=== PATIENT | female | born 1950 | race Caucasian/White ===

== ENCOUNTER 2018-04-14 03:34 | Inpatient (IN) | payer MEDICARE ==
[~2018-04-14] VITALS: Ht 162.6 cm; Wt 45.4 kg
[2018-04-14] MEDS ORDERED: LORAZEPAM 0.5 MG TABLET PO PRN (06:30)
[2018-04-14] MEDS ORDERED: TEMAZEPAM 7.5 MG CAPSULE PO PRN (06:30)
[2018-04-14] MEDS ORDERED: MAGNESIUM HYDROXIDE 30 ML UDC PO PRN (06:30)
[2018-04-14] MEDS ORDERED: MAG HYDROX/AL HYDROX/SIMETH 30 ML UDC PO PRN (06:30)
[2018-04-14] MEDS ORDERED: ACETAMINOPHEN 325 MG TABLET PO PRN (06:30)
[2018-04-14] MEDS ORDERED: CEPH-570 PO (07:46)
[2018-04-14 08:00] VITALS: BP 118/65
--- NOTE | 2018-04-14 08:07 | NUR ---
GPS/RN PT IS DIRECT ADMIT FROM [facility]([place]) ON 5150 HOLD RECEIVED BY THE SHIP FASTENER. NO ACUTE DISTRESS NOTED. NO SI OR HI REPORTED AT THE TIME OF ASSESSMENT. PT REFUSED TO SIGN THE ADMITTING PAPERWORK/CONSENTS. WILL CONTINUE WITH ADMISSION
--- NOTE | 2018-04-14 08:30 | NUR ---
GPS/RN-NOTES RECEIVED PATIENT AWAKE,ALERT SITTING IN HER BED,NO ACUTE DISTRESS NOTED.PATIENT WAS ADMITTED 5150 FOR GRAVELY DISABLE.UPON FACE TO FACE ASSESSMENT PATIENT ALERT ORIENTED X3 ,CALM COOPERATIVE WITH DELUSIONS. STATED" I GOT FOOD POISON LAST YEAR". PER HOLD PATIENT LOSS SIGNIFICANT WEIGHT AND REFUSING OR DRINK.CONTRABAND AND FULL BODY ASSESSMENT WAS DONE. PATIENT WAS ORIENTED IN THE UNIT AND UNIT POLICIES. PATIENT'S RIGHTS WAS DISCUSS WITH THE PATIENT WITH UNDERSTANDING. PATIENT'S RIGHT BOOKLET WAS GIVEN TO THE PATIENT.ALL NEEDS ATTENDED AND ANTICIPATED. WILL CONT. MONITORING Q15 MINS. FOR SAFETY AND BEHAVIOR.
--- NOTE | 2018-04-14 09:30 | NUR ---
GPS/RN-NOTES SEEN BY DR. RATLIFF WITH ORDERS.
[2018-04-14] MEDS: risperiDONE LIQUID 1 MG/ML ML PO SCH ×2 (11:31→16:59)
--- NOTE | 2018-04-14 12:30 | NUR ---
GPS/RN-NOTES PATIENT WAS VISITED BY HER FRIEND ALMITA ALLEN (ONE OF HER SUPERVISOR PROPERTIES).
[2018-04-14] MEDS: ENSURE ENLIVE 237 ML LIQUID (VANILLA) PO SCH ×2 (15:23→17:00)
[2018-04-14 15:59] VITALS: BP 155/84
[2018-04-14] MEDS: MEGESTROL ACETATE SUSP 400 MG/10 ML UDC PO SCH (16:58)
[2018-04-14] MEDS: CEPHALEXIN MONOHYDRATE 500 MG CAPSULE PO SCH (16:58)
--- NOTE | 2018-04-14 17:34 | NUR ---
GPS/RN-NOTES PATIENT REFUSED ENSURE SUPPLEMENT. STATED" I CANNOT DRINK IT BECAUSE THERE A LOT OF FAT ON IT". EXPLAINED RISK AND BENEFITS BUT PATIENT STILL REFUSED. OFFERED X3.
[2018-04-14 20:24] VITALS: BP 140/76
[2018-04-14] MEDS ORDERED: MIRTAZAPINE 15 MG TABLET PO SCH (22:00)
--- NOTE | 2018-04-15 06:45 | NUR ---
GPS-RN PATIENT HAD WOKEN UP, PT IS VERY ANXIOUS AND RESTLESS. ENCOURAGED TO VERBALIZE FEELINGS AND CONCERNS. OFFERED MEDS TO KEEP HER CALM BUT PATIENT REFUSED. WILL CONTINUE TO MONITOR Q15MIN ROUNDS FOR SAFETY AND BEHAVIOR.
[2018-04-15 08:00] VITALS: BP 136/89
[2018-04-15] MEDS: ENSURE ENLIVE 237 ML LIQUID (VANILLA) PO SCH ×3 (09:00→17:00)
[2018-04-15] MEDS: CEPHALEXIN MONOHYDRATE 500 MG CAPSULE PO SCH ×3 (09:00→17:00)
[2018-04-15] MEDS: MEGESTROL ACETATE SUSP 400 MG/10 ML UDC PO SCH ×2 (09:00→17:00)
[2018-04-15] MEDS: risperiDONE LIQUID 1 MG/ML ML PO SCH ×2 (09:00→17:00)
--- NOTE | 2018-04-15 12:20 | NUR ---
SW met with pt at bedside to conduct assessment, however pt was asleep. SW called out her name and pt asked for SW to come back later. Pt mumbled, "I'm asleep" with her eyes closed. YVONNE will follow up in the afternoon.
--- NOTE | 2018-04-15 15:01 | NUR ---
GPS/RN MRSA SWAB DONE, LAB CALLED FOR PICKUP
--- NOTE | 2018-04-15 15:38 | NUR ---
SW met with pt at bedside for 2nd time in order to attempt to conduct assessment on this date. Pt however was asleep and di noit respoind when SW called out her name. SW will follow up tomorrow in order to conduct pts assessment as this is pts first day at [facility].
[2018-04-15 16:00] VITALS: BP 104/66
--- NOTE | 2018-04-15 17:29 | NUR ---
GPS/RN PATIENT ADAMANTLY REFUSED ALL MEDICATION THROUGHOUT SHIFT. STATING EACH TIME THAT THE MEDICATION IS MAKING HER SICK. EXPLAINED RISKS AND BENEFITS, WILL CONTINUE TO ENCOURAGE TO COMPLY WITH MD REGIMEN.
--- NOTE | 2018-04-15 18:18 | NUR ---
GPS/RN DR MERRITT NOTIFIED THAT PATIENT WAS NOTED WITH RED BLOOD STAIN IN HER DIAPER AND THAT PATIENT STATED THAT IT WAS FROM AN OVARIAN CYST SHE HAS HAD FOR YEARS. AWAITING CALL BACK FOR ANY NEW ORDERS.
[2018-04-15 20:00] VITALS: BP 116/74
--- NOTE | 2018-04-15 21:30 | NUR ---
GPS-RN PATIENT REFUSED REMERON 15MG PO, DR. RATLIFF AT PT'S BEDSIDE EXPLAINED RISKS AND BENEFITS BUT STILL REFUSED. MD CHANGED THE ORDER TO REMERON SOLUTAB 15MG PO AND PATIENT TOOK MED. TOLERATED WELL.
[2018-04-15] MEDS: MIRTAZAPINE SOLUTAB 15 MG/UDTABLET TAB.RAPDIS PO SCH (21:40)
[2018-04-16 07:12] LABS: BASOPHILS % (AUTO) 0.2 % (0.0-2.0); EOSINOPHILS % (AUTO) 0.6 % (0.0-6.0); HEMATOCRIT 43 % (33-45); HEMOGLOBIN 13.9 g/dL (11.5-14.8); LYMPHOCYTES # (AUTO) 3.4 /CMM (0.8-4.8); LYMPHOCYTES % (AUTO) 29.2 % (20.0-44.0); MEAN CORPUSCULAR HEMOGLOBIN 32 PG (26.0-33.0); MEAN CORPUSCULAR HGB CONC 33 g/dl (31.0-36.0); MEAN CORPUSCULAR VOLUME 98 fL (82-100); MONOCYTES # (AUTO) 0.9 /CMM (0.1-1.30); MONOCYTES % (AUTO) 7.2 % (2.0-12.0); NEUTROPHILS # (AUTO) 7.4 /CMM (1.8-8.9); NEUTROPHILS % (AUTO) 62.8 % (43.0-81.0); PLATELET COUNT (AUTO) 229 /CMM (150-450); RDW COEFFICIENT OF VARIATION 13.4 (11.5-15.0); RED BLOOD CELL COUNT(AUTO) 4.35 MIL/uL (4.0-5.2); WHITE BLOOD COUNT (AUTO) 11.8 K/uL (4.3-11.0)
[2018-04-16 07:33] LABS: CALCIUM, SERUM 9.2 mg/dL (8.5-10.1); CREATININE 0.9 mg/dL (0.6-1.3); MAGNESIUM 2.2 mg/dL (1.8-2.4); PHOSPHORUS 4.5 mg/dL (2.5-4.9)
[2018-04-16 07:41] LABS: THYROID STIMULATING HORMONE 1.918 uIU/mL (0.358-3.74)
[2018-04-16 08:00] VITALS: BP 116/75
[2018-04-16] MEDS: risperiDONE LIQUID 1 MG/ML ML PO SCH ×2 (08:38→16:37)
[2018-04-16] MEDS: ENSURE ENLIVE 237 ML LIQUID (VANILLA) PO SCH ×3 (08:39→16:39)
[2018-04-16] MEDS: CEPHALEXIN MONOHYDRATE 500 MG CAPSULE PO SCH ×3 (08:43→16:40)
[2018-04-16] MEDS: MEGESTROL ACETATE SUSP 400 MG/10 ML UDC PO SCH ×2 (08:43→16:39)
--- NOTE | 2018-04-16 15:01 | NUR ---
INITIAL DISCHARGE PLAN: Patient wishes to return home to [address] [facility] [id number]. However, per pts friend Stephanie [phone] pt is unable to return home due to pt not being able to care for self. Stephanie also stated pt has no relatives and her and Juan [phone] have found placement at [facility] Address: [address] [place] [address], [place] [address] and have provided nurse with a physicians report to be completed for admission. Per Stephanie, pt has already been evaluated by [facility] and wish for pt to be discharged via ambulance paid by pt once stable. SW will help form a safe and proper discharge in collaboration with MD and pts friends.
[2018-04-16 16:00] VITALS: BP 113/72
--- NOTE | 2018-04-16 16:02 | NUR ---
YVONNE received phone call from pts friend Juan [phone] who wanted an update on pts status. Juan wanted to know if pt was eating, YVONNE transferred call to nurse's station.
[2018-04-16 20:00] VITALS: BP 113/66
[2018-04-16] MEDS: MIRTAZAPINE SOLUTAB 15 MG/UDTABLET TAB.RAPDIS PO SCH (22:09)
[2018-04-17 08:00] VITALS: BP 123/74
[2018-04-17] MEDS: CEPHALEXIN MONOHYDRATE 500 MG CAPSULE PO SCH ×4 (08:51→16:58)
[2018-04-17] MEDS: MEGESTROL ACETATE SUSP 400 MG/10 ML UDC PO SCH ×3 (08:51→17:00)
[2018-04-17] MEDS: ENSURE ENLIVE 237 ML LIQUID (VANILLA) PO SCH ×4 (08:53→16:58)
[2018-04-17] MEDS: risperiDONE LIQUID 1 MG/ML ML PO SCH ×3 (09:43→17:00)
[2018-04-17 16:00] VITALS: BP 122/70
--- NOTE | 2018-04-17 19:30 | NUR ---
GPS RN NOTE, RECEIVED PATIENT AWAKE AND IN BED, NO S/S OR COMPLAINTS OF PAIN AT THIS TIME. PATIENT IS DISPLAYING NO S/S OF APPARENT DISTRESS AT THIS TIME. PATIENT BREATHING IS UNLABORED WITH EQUAL RISE AND FALL CHEST. PATIENT IS ALERT AND ORIENTED X 3 ON ROOM AIR WITH A SPO2 93 %. PATIENT IS MED SELECTIVE, DELUSIONAL, DISORGANIZED, COOPERATIVE, ANXIOUS, GUARDED, AND NEEDS REORIENTATION. PATIENT DENIES SUICIDE IDEATIONS AND HOMICIDAL IDEATIONS AT THIS TIME. PATIENT EDUCATED ON THE USE OF THE CALL DHALIWAL. PATIENT BED SIDE RAILS UP X 2 FOR SAFETY, BED IS LOCKED AND LOW, WILL CONTINUE TO MONITOR AND MAINTAIN SAFETY WITH THE HELP OF SAFE.
[2018-04-17 19:59] VITALS: BP 114/64
[2018-04-17] MEDS: MIRTAZAPINE SOLUTAB 15 MG/UDTABLET TAB.RAPDIS PO SCH (21:55)
[2018-04-18 08:00] VITALS: BP 105/61
[2018-04-18] MEDS: MEGESTROL ACETATE SUSP 400 MG/10 ML UDC PO SCH ×3 (08:22→16:45)
[2018-04-18] MEDS: CEPHALEXIN MONOHYDRATE 500 MG CAPSULE PO SCH ×5 (08:22→16:45)
[2018-04-18] MEDS: ENSURE ENLIVE 237 ML LIQUID (VANILLA) PO SCH ×4 (08:22→16:44)
[2018-04-18] MEDS: risperiDONE LIQUID 1 MG/ML ML PO SCH ×3 (08:23→16:44)
--- NOTE | 2018-04-18 08:34 | NUR ---
YVONNE faxed physicians report to Latanya; wax room supervisor of [facility] Address: [address], [place] [address] fore review.
[2018-04-18 16:00] VITALS: BP 107/52
[2018-04-18 20:00] VITALS: BP 115/65
[2018-04-18] MEDS: MIRTAZAPINE SOLUTAB 15 MG/UDTABLET TAB.RAPDIS PO SCH (22:22)
[2018-04-19 08:29] VITALS: BP 110/58
[2018-04-19] MEDS: MEGESTROL ACETATE SUSP 400 MG/10 ML UDC PO SCH ×2 (09:00→17:00)
[2018-04-19] MEDS: CEPHALEXIN MONOHYDRATE 500 MG CAPSULE PO SCH ×3 (09:00→17:00)
[2018-04-19] MEDS: ENSURE ENLIVE 237 ML LIQUID (VANILLA) PO SCH ×3 (09:00→17:34)
[2018-04-19] MEDS: risperiDONE LIQUID 1 MG/ML ML PO SCH ×3 (09:00→21:00)
--- NOTE | 2018-04-19 11:00 | NUR ---
Pt. refused labs
[2018-04-19 16:00] VITALS: BP 117/64
[2018-04-19 19:30] VITALS: BP 126/75
[2018-04-19 20:00] VITALS: BP 126/75
[2018-04-19] MEDS: MIRTAZAPINE SOLUTAB 15 MG/UDTABLET TAB.RAPDIS PO SCH (21:33)
--- NOTE | 2018-04-19 21:33 | NUR ---
GPS/CARD MOUNTER NOTES: PT. REFUSED ALL HS MEDS. EXPLAINED RISK AND BENEFITS. PT. STILL REFUSED.
[2018-04-20 08:00] VITALS: BP 112/65
[2018-04-20] MEDS: risperiDONE LIQUID 1 MG/ML ML PO SCH ×2 (09:00→21:00)
[2018-04-20] MEDS: MEGESTROL ACETATE SUSP 400 MG/10 ML UDC PO SCH ×2 (09:00→17:00)
[2018-04-20] MEDS: CEPHALEXIN MONOHYDRATE 500 MG CAPSULE PO SCH ×3 (09:00→17:00)
[2018-04-20] MEDS: ENSURE ENLIVE 237 ML LIQUID (VANILLA) PO SCH ×3 (09:30→17:00)
[2018-04-20 16:11] VITALS: BP 110/60
--- NOTE | 2018-04-20 18:00 | NUR ---
refused all meds all day,medical md as well as psychiatrist aware.
[2018-04-20 19:30] VITALS: BP 117/77
[2018-04-20 20:00] VITALS: BP 117/77
[2018-04-20] MEDS: MIRTAZAPINE SOLUTAB 15 MG/UDTABLET TAB.RAPDIS PO SCH (21:39)
--- NOTE | 2018-04-20 21:44 | NUR ---
encephalographer notes pt refused medication even explained to her what's the purpose of it. refused to drink her ensure as well. and instead she request to have Pro biotic. and wants to speak to her psychiatric doctor . charge nurse aware.
--- NOTE | 2018-04-21 | NUR ---
facilities operations technician notes pt resting comfortably in bed without any acute distress noted. respiration even and non-labored. kept her warm and comfortable at all times. bed alarm set for pt safety. will continue monitoring.
[2018-04-21 08:00] VITALS: BP 112/62
[2018-04-21] MEDS: ENSURE ENLIVE 237 ML LIQUID (VANILLA) PO SCH ×3 (08:21→16:40)
[2018-04-21] MEDS: CEPHALEXIN MONOHYDRATE 500 MG CAPSULE PO SCH ×3 (08:25→16:40)
[2018-04-21] MEDS: MEGESTROL ACETATE SUSP 400 MG/10 ML UDC PO SCH ×2 (08:25→16:40)
[2018-04-21] MEDS: risperiDONE LIQUID 1 MG/ML ML PO SCH ×2 (08:25→21:00)
[2018-04-21 16:02] VITALS: BP 107/62
--- NOTE | 2018-04-21 17:20 | NUR ---
[id number]: refused all meds all day,medical md as well as psychiatrist aware.
[2018-04-21 19:42] VITALS: BP 103/42
--- NOTE | 2018-04-21 20:00 | NUR ---
GPS RN NOTE, RECEIVED PATIENT AWAKE AND IN BED, NO S/S OR COMPLAINTS OF PAIN AT THIS TIME. PATIENT IS DISPLAYING NO S/S OF APPARENT DISTRESS. PATIENT BREATHING IS UNLABORED WITH EQUAL RISE AND FALL CHEST. PATIENT IS ALERT AND ORIENTED X 3 ON ROOM AIR WITH A SPO2 99 %. PATIENT IS DELUSIONAL, DISORGANIZED, COOPERATIVE BUT REFUSING ALL MEDS SHE SAYS IT IS EASIER TO GET INJECTIONS THAN SWALLOW PILLS ALL THE TIME , REFUSING FLUIDS DESPITE ENCOURAGEMENT, ANXIOUS, GUARDED, AND NEEDS REORIENTATION. PATIENT DENIES SUICIDE IDEATIONS AND HOMICIDAL IDEATIONS AT THIS TIME. PATIENT EDUCATED ON THE USE OF THE CALL DHALIWAL. PATIENT BED SIDE RAILS UP X 2 FOR SAFETY, BED IS LOCKED AND LOW, WILL CONTINUE TO MONITOR AND MAINTAIN SAFETY WITH THE HELP OF SAFE.
[2018-04-21] MEDS: MIRTAZAPINE SOLUTAB 15 MG/UDTABLET TAB.RAPDIS PO SCH (21:27)
--- NOTE | 2018-04-21 21:41 | NUR ---
REFUSED ALL MEDS DESPITE EDUCATION AND ENCOURAGEMENT. STATED SHE WOULD RATHER GET SHOTS BECAUSE IT TAKES TOO MUCH ENERGY TO SWALLOW PILLS.
[2018-04-22 08:00] VITALS: BP 98/59
[2018-04-22] MEDS: ENSURE ENLIVE 237 ML LIQUID (VANILLA) PO SCH ×3 (08:01→16:34)
[2018-04-22] MEDS: CEPHALEXIN MONOHYDRATE 500 MG CAPSULE PO SCH ×3 (08:01→16:34)
[2018-04-22] MEDS: risperiDONE LIQUID 1 MG/ML ML PO SCH ×2 (08:02→20:51)
[2018-04-22] MEDS: MEGESTROL ACETATE SUSP 400 MG/10 ML UDC PO SCH ×2 (08:02→16:35)
[2018-04-22 16:00] VITALS: BP 103/61
[2018-04-22 19:48] VITALS: BP 134/65
--- NOTE | 2018-04-22 20:15 | NUR ---
GPS RN NOTE, RECEIVED PATIENT AWAKE AND IN BED, NO S/S OR COMPLAINTS OF PAIN AT THIS TIME. NO S/S OF APPARENT DISTRESS. BREATHING UNLABORED WITH EQUAL RISE AND FALL CHEST. PATIENT IS ALERT AND ORIENTED X 3 ON ROOM AIR WITH A SPO2 93%. PATIENT IS PASSIVE, ANXIOUS, NEEDY, REFUSES TO AMBULATE, WEARING DIAPER. REFUSES FOOD BUT DRINKS ENSURE SNACK. PATIENT DENIES SUICIDE IDEATIONS AND HOMICIDAL IDEATIONS AT THIS TIME. HAS PARANOID IDEATION, THINKS WATER IS BEING TAMPERED WITH. REALITY ORIENTATION PROVIDED PRN. PATIENT EDUCATED ON THE USE OF THE CALL DHALIWAL. PATIENT BED SIDE RAILS UP X 2 FOR SAFETY, BED IS LOCKED AND LOW, WILL CONTINUE TO MONITOR AND MAINTAIN SAFETY.
[2018-04-22] MEDS: MIRTAZAPINE SOLUTAB 15 MG/UDTABLET TAB.RAPDIS PO SCH (20:52)
--- NOTE | 2018-04-22 21:30 | NUR ---
[facility] APPLICATION BEING FILED BY DR. RATLIFF. SHE COMPLIED WITH ORAL MEDICATION TONIGHT.
[2018-04-23 08:00] VITALS: BP 101/62
[2018-04-23] MEDS: CEPHALEXIN MONOHYDRATE 500 MG CAPSULE PO SCH ×3 (08:46→16:27)
[2018-04-23] MEDS: MEGESTROL ACETATE SUSP 400 MG/10 ML UDC PO SCH ×2 (08:46→16:27)
[2018-04-23] MEDS: ENSURE ENLIVE 237 ML LIQUID (VANILLA) PO SCH ×3 (08:46→16:27)
[2018-04-23] MEDS: risperiDONE LIQUID 1 MG/ML ML PO SCH ×2 (08:47→21:26)
--- NOTE | 2018-04-23 11:23 | NUR ---
YVONNE faxed SNF referral to Spencer BurksEnvironmental Engineering Technician at [facility] Address: [address], [place] [address] fax: [phone] for review.
--- NOTE | 2018-04-23 11:32 | NUR ---
Pts friend Juan [phone] contacted SW to inform her pt was accepted to [facility] Address: [address], [place] [address] and wants to know discharge date so she can arrange transportation and give board and care 1st months rent. SW informed pts friend that MD has recommended for pt to be discharged to SNF, pts friend stated that board and care has all amenities pt needs and guarantees pt will receive the care she needs at that facility. YVONNE stated to pts friend that she would notify MD and will notify her of discharge date. SW also informed pts friend that MD has filed a RIESE due to pt refusing to take medication.
--- NOTE | 2018-04-23 12:17 | NUR ---
Spencer Cone Picker at [facility] Address: [address] [place] [address] contacted SW to inform her pt was not accepted due to pt not having a Dementia Dx.
[2018-04-23 16:00] VITALS: BP 105/52
[2018-04-23 20:13] VITALS: BP 101/63
--- NOTE | 2018-04-23 21:26 | NUR ---
GPS-RN PATIENT IS SELECTIVE TO MEDICATION, REFUSED TO TAKE REMERON SCHEDULED, STATED IT MAKES ME GROGGY DESPITE OF EDUCATION AND ENCOURAGEMENT DONE. PATIENT STILL REFUSED. PATIENT TOOK RISPERDAL ORDERED. TOLERATED-WELL. WILL CONTINUE TO MONITOR.
[2018-04-23] MEDS: MIRTAZAPINE SOLUTAB 15 MG/UDTABLET TAB.RAPDIS PO SCH (22:00)
[2018-04-24 08:00] VITALS: BP 100/63
[2018-04-24] MEDS: risperiDONE LIQUID 1 MG/ML ML PO SCH (08:33)
[2018-04-24] MEDS: ENSURE ENLIVE 237 ML LIQUID (VANILLA) PO SCH ×3 (08:33→16:46)
[2018-04-24] MEDS: MEGESTROL ACETATE SUSP 400 MG/10 ML UDC PO SCH ×2 (08:33→16:46)
[2018-04-24 16:00] VITALS: BP 111/74
[2018-04-24] MEDS: OLANZAPINE 5 MG/TAB.RAPDIS PO SCH (16:47)
[2018-04-24] MEDS: HALOPERIDOL LACTATE INJ 5 MG/ML VIAL IM SCH (17:01)
[2018-04-24 21:15] VITALS: BP 108/58
[2018-04-24] MEDS: CEPHALEXIN MONOHYDRATE 500 MG CAPSULE PO SCH (22:03)
[2018-04-24] MEDS: MIRTAZAPINE SOLUTAB 15 MG/UDTABLET TAB.RAPDIS PO SCH (22:09)
[2018-04-24 22:30] VITALS: BP 116/65
[2018-04-25 08:00] VITALS: BP 151/58
--- NOTE | 2018-04-25 08:15 | NUR ---
Pt in room in bed awake, alert, oriented x2-3, anxious want to make phone call, made her aware that later we can help her, encourage pos, drink most of her fluids in her breakfast tray but did not eat solid.
[2018-04-25] MEDS: CEPHALEXIN MONOHYDRATE 500 MG CAPSULE PO SCH ×3 (09:00→21:57)
[2018-04-25] MEDS: HALOPERIDOL LACTATE INJ 5 MG/ML VIAL IM SCH ×3 (09:00→18:02)
[2018-04-25] MEDS: MEGESTROL ACETATE SUSP 400 MG/10 ML UDC PO SCH ×4 (09:00→17:26)
[2018-04-25] MEDS: OLANZAPINE 5 MG/TAB.RAPDIS PO SCH ×4 (09:00→17:26)
[2018-04-25] MEDS: ENSURE ENLIVE 237 ML LIQUID (VANILLA) PO SCH ×3 (09:25→17:26)
--- NOTE | 2018-04-25 09:45 | NUR ---
YVONNE was contacted by pts friend Stephanie [phone] to inquire about pts discharge status. YVONNE explained to pts friend that pt had a RIESE hearing yesterday 04/24/18 and hospital will be giving pt medication against her will. YVONNE also informed pts friend that MD has recommended pt to be discharged to a usp instead of a board and care. Pts friend understood, YVONNE will help form a safe and proper discharge for pt in collaboration with MD.
--- NOTE | 2018-04-25 09:53 | NUR ---
Pt in bed awake, alert, refused her am meds, pt is rease, haldol im was given.
--- NOTE | 2018-04-25 13:00 | NUR ---
Pt in room poor appetite, encourage pos, but pt refuses care, anxious worried about person living in her house ansd not paying rent, was explained to her that she vidhi to take care of self and will f/u to help her out.
[2018-04-25 16:00] VITALS: BP 113/84
--- NOTE | 2018-04-25 17:54 | NUR ---
PT REFUSED PO MEDS WILL GIVE HALDOL IM D/T PT IS ON REASE,
[2018-04-25 20:00] VITALS: BP 138/78
[2018-04-25] MEDS: MIRTAZAPINE SOLUTAB 15 MG/UDTABLET TAB.RAPDIS PO SCH (21:57)
[2018-04-26 08:00] VITALS: BP 118/69
[2018-04-26] MEDS: CEPHALEXIN MONOHYDRATE 500 MG CAPSULE PO SCH ×2 (09:00→22:37)
[2018-04-26] MEDS: ENSURE ENLIVE 237 ML LIQUID (VANILLA) PO SCH ×3 (09:00→17:00)
[2018-04-26] MEDS: MEGESTROL ACETATE SUSP 400 MG/10 ML UDC PO SCH ×2 (09:00→17:00)
[2018-04-26] MEDS: OLANZAPINE 5 MG/TAB.RAPDIS PO SCH ×2 (09:00→17:00)
[2018-04-26] MEDS: HALOPERIDOL LACTATE INJ 5 MG/ML VIAL IM SCH ×2 (09:28→18:07)
--- NOTE | 2018-04-26 09:30 | NUR ---
GPS/RN-NOTES PATIENT REFUSED ALL 0900AM MEDICATION INCLUDING ZYPREXA P.O. HALDOL 0.5MG IM GIVEN ORDERED.
[2018-04-26 16:00] VITALS: BP 127/73
--- NOTE | 2018-04-26 18:24 | NUR ---
GPS/RN-NOTES PATIENT AGREED TO TAKE HER P.O MEDICATION AT FIRST BUT WHEN I ABOUT GIVE HER PILL SHE STATED" NO I CAN NOT TAKE IT" AND REFUSED ALL 1700 MEDICATION INCLUDING ZYPREXA P.O. HALDOL 0.5MG IM GIVEN ORDERED.
[2018-04-26 20:00] VITALS: BP 123/71
--- NOTE | 2018-04-26 20:10 | NUR ---
RN INITIAL NOTES: PT IN BED, AWAKE, RESPIRATION EVEN AND UNLABORED, PT REPORTED TO BE REFUSING TO EAT OR DRINK, REFUSING MOST OF HER MEDICATION, MD AWARE, SEEN BY DR RATLIFF AT THIS TIME, PT REMAINS SECLUSIVE, STAYS IN BED MOST OF THE TIME, PREFERS DIAPER OVER AMBULATING TO RESTROOM, REMAINS DEPRESSED, PARANOID, WAS GIVEN IM HALDOL DURING THE DAY. PT IS A/O X3, NEEDS ENCOURAGEMENT, SAFETY PRECAUTIONS INITIATED, WILL CONTINUE MONITORING PT FOR SAFETY [id number] AND MONITORING FOR ANY CHANGES IN BEHAVIOR
[2018-04-26 20:21] VITALS: BP 123/71
[2018-04-26] MEDS: MIRTAZAPINE SOLUTAB 15 MG/UDTABLET TAB.RAPDIS PO SCH (22:36)
--- NOTE | 2018-04-26 22:36 | NUR ---
RN NOTES: MIRTAZIPINE AND KEFLEX GIVEN/ADMINISTERED TO THE PT AT THIS TIME, PLACED ON APPLE SAUCE AND PT TOOK THE SAID MEDICATION, JORDAN KENNEDY ACT BEDSIDE TO WITNESS PT'S TAKING THE MEDICINE BY MOUTH
--- NOTE | 2018-04-26 23:16 | NUR ---
ACCU CHECK: CHECK PT'S BLOOD SUGAR, RESULT IS 150, PER REPORT PT REFUSING TO EAT OR DRINK, PT IS AWAKE AT THIS TIME
[2018-04-27 08:00] VITALS: BP 126/66
[2018-04-27] MEDS: CEPHALEXIN MONOHYDRATE 500 MG CAPSULE PO SCH ×2 (09:00→21:00)
[2018-04-27] MEDS: MEGESTROL ACETATE SUSP 400 MG/10 ML UDC PO SCH ×2 (09:00→17:00)
[2018-04-27] MEDS: ENSURE ENLIVE 237 ML LIQUID (VANILLA) PO SCH ×3 (09:00→17:00)
[2018-04-27] MEDS: OLANZAPINE 5 MG/TAB.RAPDIS PO SCH ×2 (09:00→17:44)
--- NOTE | 2018-04-27 09:00 | NUR ---
GPS R/N-NOTES PATIENT REFUSED TO EAT HER BREAKFAST EXCEPT SOY MILK DRINK. ENCOURAGE AND EXPLAINED RISK AND BENEFITS OF EATING AND DRINKING FLUID BUT PATIENT STILL REFUSED TO EAT AND DRINK PLAIN WATER. PATIENT IS PARANOID STATED" THERE'S SOMETHING IN THE WATER IT TASTE BAD".
[2018-04-27] MEDS: HALOPERIDOL LACTATE INJ 5 MG/ML VIAL IM SCH ×2 (10:06→17:00)
--- NOTE | 2018-04-27 10:08 | NUR ---
CLARIFIED WITH DR. RATLIFF REGARDING THE HALDOL IM AND SAID HALDOL 1 MG BID IF REFUSES ZYPREXA MAX.
--- NOTE | 2018-04-27 10:13 | NUR ---
GPS/RN-NOTES PATIENT REFUSED ALL 0900AM MEDICATION INCLUDING ZYPREXA 5MG P.O. HALDOL 1 MG IM GIVEN ORDERED.
--- NOTE | 2018-04-27 13:09 | NUR ---
GPS/RN-NOTES PATIENT REFUSED ENSURE SUPPLEMENT. STATED" I DON'T DRINK THAT I ONLY WANT THE SOY MILK".
[2018-04-27 16:00] VITALS: BP 125/71
[2018-04-27] MEDS ORDERED: HALOPERIDOL LACTATE INJ 5 MG/ML VIAL IM SCH (17:00)
--- NOTE | 2018-04-27 17:46 | NUR ---
GPS/RN-NOTES PATIENT REFUSED ALL MEDICATIONS EXCEPT ZYPREXA 5MG P.O.
--- NOTE | 2018-04-27 19:20 | NUR ---
GPS RN OPENING NOTE Patient was seen lying in bed AAOx3, depressed with flat affect. Appearance is disheveled and malnourished. Patient has no immediate needs or concerns at the moment and shows no signs of acute distress. Will continue to monitor.
[2018-04-27 20:00] VITALS: BP 108/59
[2018-04-27] MEDS: MIRTAZAPINE SOLUTAB 15 MG/UDTABLET TAB.RAPDIS PO SCH (22:00)
--- NOTE | 2018-04-27 22:00 | NUR ---
GPS RN NOTE - Refused Meds Patient refused PM meds, Keflex and Remeron, despite thorough education and encouragement. Patient also had complaints about the taste of the water even after giving her a fresh pitcher of water. Patient was offered juice and milk, as well as other snacks, but patient refused.
[2018-04-28 08:00] VITALS: BP 99/60
[2018-04-28] MEDS: MEGESTROL ACETATE SUSP 400 MG/10 ML UDC PO SCH ×2 (09:00→17:00)
[2018-04-28] MEDS: ENSURE ENLIVE 237 ML LIQUID (VANILLA) PO SCH ×3 (09:00→17:00)
[2018-04-28] MEDS: OLANZAPINE 5 MG/TAB.RAPDIS PO SCH ×2 (09:00→17:00)
[2018-04-28] MEDS: CEPHALEXIN MONOHYDRATE 500 MG CAPSULE PO SCH ×2 (09:00→21:00)
[2018-04-28] MEDS: HALOPERIDOL LACTATE INJ 5 MG/ML VIAL IM SCH ×2 (09:07→17:34)
--- NOTE | 2018-04-28 09:13 | NUR ---
GPS/RN-NOTES PATIENT REFUSED ALL 0900AM MEDICATION INCLUDING ZYPREXA 5MG P.O. STATED" I DON'T WANT ANY MEDICATIONS ,IT'S MAKING ME SICK,I'M PERFECTLY ALRIGHT". HALDOL 1 MG IM GIVEN ORDERED.
--- NOTE | 2018-04-28 13:53 | NUR ---
GPS/RN-NOTES SEEN BY DR. MERRITT WITH VERBAL ORDER OF BMP AND MAGNESIUM LEVEL IN AM. ALSO MD MADE AWARE OF PATIENT REFUSAL OF MEDICATIONS INCLUDING ATB.
[2018-04-28 16:17] VITALS: BP 119/65
--- NOTE | 2018-04-28 17:53 | NUR ---
GPS/RN-NOTES PATIENT REFUSED ALL 1700 MEDICATION INCLUDING ZYPREXA 5MG P.O. HALDOL 1 MG IM GIVEN ORDERED.
--- NOTE | 2018-04-28 19:30 | NUR ---
RN NOTES RECEIVED PATIENT IN BED AWAKE, AO X 3, ABLE TO MAKE NEEDS KNOWN. NO ACUTE DISTRESS NOTED. DENIES ANY PAIN AT THIS TIME. DENIERS SI/HI AT THIS TIME. SAFETY REMINDERS GIVEN. ON LOW BED WITH BILATERAL UPPER SIDE RAILS UP. CALL DHALIWAL WITHIN EASY REACH. WILL CONTINUE TO MONITOR.
[2018-04-28 20:00] VITALS: BP 120/70
[2018-04-28 20:12] VITALS: BP 120/70
[2018-04-28] MEDS: MIRTAZAPINE SOLUTAB 15 MG/UDTABLET TAB.RAPDIS PO SCH (21:28)
--- NOTE | 2018-04-28 21:28 | NUR ---
RN NOTES PATIENT REFUSED BOTH KEFLEX AND REMERON. MEDS WERE OFFERED WITH WATER, JUICES, APPLESAUCE, AND PUDDING, BECAUSE PATIENT STATED THAT SHE HAS A "HARD TIME SWALLOWING" DUE TO "DEHYDRATION." PATIENT WAS EDUCATED TO IMPORTANCE OF THE MEDICINE. PATIENT STILL STRONGLY REFUSED.
--- NOTE | 2018-04-29 06:35 | NUR ---
RN NOTES PATIENT ASLEEP, EASILY AROUSABLE. RESPIRATIONS EVEN. NO SIGNS OF PAIN NOTED. NEEDS ATTENDED. KEPT CLEAN, DRY, AND COMFORTABLE. SAFETY PRECAUTIONS AND COMFORT MEASURES IN PLACE. WILL GIVE REPORT TO DAY SHIFT FOR CONTINUITY OF CARE.
[2018-04-29 08:00] VITALS: BP 113/68
[2018-04-29 08:10] LABS: CALCIUM, SERUM 8.8 mg/dL (8.5-10.1); CREATININE 0.7 mg/dL (0.6-1.3); MAGNESIUM 2.2 mg/dL (1.8-2.4); POTASSIUM 4.1 mmol/L (3.5-5.1)
[2018-04-29] MEDS: HALOPERIDOL LACTATE INJ 5 MG/ML VIAL IM SCH ×2 (08:32→17:00)
[2018-04-29] MEDS: MEGESTROL ACETATE SUSP 400 MG/10 ML UDC PO SCH ×2 (08:32→16:54)
[2018-04-29] MEDS: CEPHALEXIN MONOHYDRATE 500 MG CAPSULE PO SCH ×2 (08:32→21:08)
[2018-04-29] MEDS: ENSURE ENLIVE 237 ML LIQUID (VANILLA) PO SCH ×3 (08:32→16:54)
[2018-04-29] MEDS: OLANZAPINE 5 MG/TAB.RAPDIS PO SCH ×2 (08:33→16:55)
--- NOTE | 2018-04-29 08:40 | NUR ---
GPS/RN PATIENT REFUSED ZYPREXA 5 MG, ADMINISTERED HALDOL 1 MG IM ORDERED FOR REFUSAL. WILL CONTINUE TO MONITOR.
--- NOTE | 2018-04-29 13:53 | NUR ---
YVONNE faxed SNF referral to Carlota school admissions representative at [facility] Address: [address], [place] [address] fax: [phone] for review.
--- NOTE | 2018-04-29 15:30 | NUR ---
Pts friend Juan [phone] contacted YVONNE to inquire on pts discharge and plan of care. SW informed pts friend that pt has not been eating only drinking almond soy milk and is now receiving injections but refuses to take medication orally. YVONNE explained to pts friend that per MD recommendation pt will be referred to a SNF in [place]. Pts friend aggress and stated that pt needs a lot of help that she cannot provide.
[2018-04-29 16:17] VITALS: BP 113/74
--- NOTE | 2018-04-29 17:36 | NUR ---
GPS/RN ADMINISTERED ZYPREXA 5 MG, NO BACKUP HALDOL INJECTION NEEDED.
[2018-04-29] MEDS ORDERED: OLANZAPINE 10 MG VIAL IM ONE (20:00)
[2018-04-29] MEDS: MIRTAZAPINE SOLUTAB 15 MG/UDTABLET TAB.RAPDIS PO SCH (21:09)
[2018-04-30 08:06] VITALS: BP 119/70
[2018-04-30] MEDS: CEPHALEXIN MONOHYDRATE 500 MG CAPSULE PO SCH ×2 (09:00→21:45)
[2018-04-30] MEDS: OLANZAPINE 10 MG VIAL IM SCH ×2 (09:00→16:54)
[2018-04-30] MEDS: MEGESTROL ACETATE SUSP 400 MG/10 ML UDC PO SCH ×2 (09:00→16:54)
[2018-04-30] MEDS: ENSURE ENLIVE 237 ML LIQUID (VANILLA) PO SCH ×3 (09:00→16:54)
[2018-04-30] MEDS: OLANZAPINE 5 MG/TAB.RAPDIS PO SCH ×2 (09:01→16:53)
--- NOTE | 2018-04-30 10:00 | NUR ---
GDS-ST-KIGOO: DR. MCFARLAND CAME TO ASSESS PT. DR. MCFARLAND IS MADE AWARE THAT PT IS NOT EATING SOLID FOODS JUST DRINKING SILK MILK TWO BOTTLES FOR EVERY MEALS. NO NEW ORDERS GIVEN AT THIS TIME
--- NOTE | 2018-04-30 11:34 | NUR ---
SW received phone call from Carlota inventory coordinator at [facility] Address: [address], [place] [address] fax: [phone] who stated pt has been accepted to their facility for admission.
--- NOTE | 2018-04-30 15:55 | NUR ---
Pts friend Juan [phone] and Laura Michel [phone] contacted SW requesting a letter acknowledging pts current hospitalization. Per pts friends they need letter to help put pts monthly bills/expenses on hold until pt is discharged and able to pay on her own. SW stated that she would write letter and place in pts chart, SW informed them that they can request letter from charge nurse.
[2018-04-30 16:11] VITALS: BP 114/58
[2018-04-30 19:50] VITALS: BP 135/75
[2018-04-30] MEDS: MIRTAZAPINE SOLUTAB 15 MG/UDTABLET TAB.RAPDIS PO SCH (21:45)
[2018-05-01] MEDS ORDERED: Z GUARD REMEDY 2 OZ OINT TP PRN (07:00)
[2018-05-01 08:00] VITALS: BP 107/59
[2018-05-01] MEDS: CEPHALEXIN MONOHYDRATE 500 MG CAPSULE PO SCH ×2 (09:00→21:39)
[2018-05-01] MEDS: MEGESTROL ACETATE SUSP 400 MG/10 ML UDC PO SCH ×2 (09:00→18:00)
[2018-05-01] MEDS: OLANZAPINE 10 MG VIAL IM SCH ×2 (09:00→18:00)
[2018-05-01] MEDS: ENSURE ENLIVE 237 ML LIQUID (VANILLA) PO SCH ×3 (09:02→18:00)
[2018-05-01] MEDS: OLANZAPINE 5 MG/TAB.RAPDIS PO SCH ×2 (09:07→17:30)
[2018-05-01] MEDS: Z GUARD REMEDY 2 OZ OINT TP SCH (09:08)
[2018-05-01 16:00] VITALS: BP 121/79
--- NOTE | 2018-05-01 16:30 | NUR ---
PATIENT ARRIVED FROM GPS, TO BE PART OF GPS OVERFLOW. PATIENT AOX3. NONLABORED BREATHING NOTED ON ROOM AIR. DENYING PAIN. NO IV LINE PER GPS POLICY. BED IN LOWEST LOCKED POSITION. CALL LIGHT WITHIN REACH. SITTER AT BEDSIDE. DENYING SI AND HI. NO SHARP OBJECTS AT BEDSIDE
--- NOTE | 2018-05-01 16:30 | NUR ---
NURSING NOTE PT HAS BEEN MOVED TO ROOM 205A, REPORT WAS GIVEN TO CRISTY FRANKS, WITH CHART AND PT'S BELONGINGS.
--- NOTE | 2018-05-01 18:09 | NUR ---
patient took ordered zyprexa po , IM held per orders patient refusing megace as well as ensure. benefits and risks explained at length
--- NOTE | 2018-05-01 18:51 | NUR ---
CLOSING NOTES: APTIEN PATIENT AOX3. NONLABORED BREATHING NOTED ON ROOM AIR. DENYING PAIN. NO IV LINE PER GPS POLICY. BED IN LOWEST LOCKED POSITION. CALL LIGHT WITHIN REACH. SITTER AT BEDSIDE. DENYING SI AND HI. NO SHARP OBJECTS AT BEDSIDE. WILL ENDORSE TO NEXT NURSE
--- NOTE | 2018-05-01 20:00 | NUR ---
MS/RN RECEIVE PATIENT AWAKE, ALERT, ORIENTED, COMFORTABLE, NO C/O PAIN, NO DISTRESS NOTED, SITTER AT BEDSIDE. WILL MONITOR.
[2018-05-01] MEDS: MIRTAZAPINE SOLUTAB 15 MG/UDTABLET TAB.RAPDIS PO SCH (21:39)
[2018-05-01 22:00] VITALS: BP 116/79
--- NOTE | 2018-05-02 04:56 | NUR ---
RN NOTES RECEIVED PT IN BED, AWAKE, A/O X 3, VERBALLY RESPONSIVE. NO DISTRESS, NO SOB NOTED. RESPIRATION IS EVEN AND UNLABORED. NO C/O PAIN OR DISCOMFORT AT THIS TIME. PT ON 1:1 SITTER FOR SAFETY. ALL NEEDS ATTENDED AND MET. FLUIDS AND FOOD ENCOURAGED BUT PT STILL NOTED WITH POOR PO INTAKE. PT DRINKING SILK AT THIS TIME. KEPT COMFORTABLE. SAFETY PRECAUTIONS OBSERVED. WILL CONT TO MONITOR. Addendum: 05/03/18 at 2378 by PAUL WHYTE RN INCORRECT TIME OF DOCUMENTATION
--- NOTE | 2018-05-02 06:08 | NUR ---
MS/RN PATIENT STILL SLEEPING AT THIS TIME, AROUSABLE, APPEAR COMFORTABLE, NO CHANGE IN CONDITION. ALL NEEDS ATTENDED AT THIS TIME. WILL CONTINUE TO MONITOR.
[2018-05-02] MEDS: MEGESTROL ACETATE SUSP 400 MG/10 ML UDC PO SCH ×2 (09:00→16:19)
[2018-05-02] MEDS: OLANZAPINE 10 MG VIAL IM SCH ×2 (09:00→17:00)
[2018-05-02] MEDS: ENSURE ENLIVE 237 ML LIQUID (VANILLA) PO SCH ×3 (09:00→16:19)
[2018-05-02] MEDS: CEPHALEXIN MONOHYDRATE 500 MG CAPSULE PO SCH ×2 (09:16→21:12)
[2018-05-02] MEDS: OLANZAPINE 5 MG/TAB.RAPDIS PO SCH ×2 (09:16→17:03)
[2018-05-02] MEDS: Z GUARD REMEDY 2 OZ OINT TP SCH (09:33)
--- NOTE | 2018-05-02 09:49 | NUR ---
Pts friend Juan [phone] contacted SW to arrange transportation for pt and request additional information needed for pts discharge to [facility].
--- NOTE | 2018-05-02 10:49 | NUR ---
SW contacted Latanya; core layer machine operator of [facility] Address: [address], [place] [address] to coordinate discharge for pt for tomorrow 05/03/18.
[2018-05-02 16:00] VITALS: BP 111/62
--- NOTE | 2018-05-02 18:26 | NUR ---
GPS OVERFLOW CLOSING NOTES PT REMAINS STABLE. ALL NEEDS ANTICIPATED FOR AND MET. ALL DUE MEDS GIVEN. SHE CONTINUES TO DENY ANY SI/HI AT THIS TIME. SAFETY MEASURES IN PLACE. WILL ENDORSE TO NIGHTSHIFT NURSE FOR RAUL
--- NOTE | 2018-05-02 19:20 | NUR ---
RN NOTES RECEIVED PT IN BED, AWAKE, A/O X 3, VERBALLY RESPONSIVE. NO DISTRESS, NO SOB NOTED. RESPIRATION IS EVEN AND UNLABORED. NO C/O PAIN OR DISCOMFORT AT THIS TIME. PT ON 1:1 SITTER FOR SAFETY. ALL NEEDS ATTENDED AND MET. FLUIDS AND FOOD ENCOURAGED BUT PT STILL NOTED WITH POOR PO INTAKE. PT DRINKING SILK AT THIS TIME. KEPT COMFORTABLE. SAFETY PRECAUTIONS OBSERVED. WILL CONT TO MONITOR.
--- NOTE | 2018-05-02 20:30 | NUR ---
DR. RATLIFF AT BED SIDE, PER Quoc RATLIFF PT IS OK TO BE DISCHARGED TODAY.
[2018-05-02] MEDS: MIRTAZAPINE SOLUTAB 15 MG/UDTABLET TAB.RAPDIS PO SCH (21:13)
--- NOTE | 2018-05-03 06:32 | NUR ---
RN NOTES PT IN BED, ASLEEP AT THIS TIME, AROUSES EASILY, A/O X 3, VERBALLY RESPONSIVE. NO DISTRESS, NO SOB NOTED. RESPIRATION IS EVEN AND UNLABORED. NO C/O PAIN OR DISCOMFORT AT THIS TIME. PT ON 1:1 SITTER FOR SAFETY. ALL NEEDS ATTENDED AND MET. FLUIDS AND FOOD ENCOURAGED BUT PT STILL NOTED WITH POOR PO INTAKE. KEPT COMFORTABLE. SAFETY PRECAUTIONS OBSERVED. WILL ENDORSE TO NEXT SHIFT FOR RAUL.
--- NOTE | 2018-05-03 06:54 | NUR ---
PT REFUSED PICTURE TAKING, SITTER AT BEDSIDE, WILL TRY AGAIN LATER , AND ENDORSE TO NEXT SHIFT ACCORDINGLY.
[2018-05-03] MEDS: MEGESTROL ACETATE SUSP 400 MG/10 ML UDC PO SCH (08:05)
[2018-05-03] MEDS: ENSURE ENLIVE 237 ML LIQUID (VANILLA) PO SCH (08:05)
[2018-05-03] MEDS: CEPHALEXIN MONOHYDRATE 500 MG CAPSULE PO SCH (08:06)
[2018-05-03] MEDS: OLANZAPINE 5 MG/TAB.RAPDIS PO SCH (08:55)
[2018-05-03] MEDS: Z GUARD REMEDY 2 OZ OINT TP SCH (08:55)
[2018-05-03] MEDS: OLANZAPINE 10 MG VIAL IM SCH (09:00)
--- NOTE | 2018-05-03 09:12 | NUR ---
DR. RATLIFF GAVE AN ORDER TO D/C HOLD AND D/C TO [facility] AND TO FOLLOW UP WITH PSYCH AND MEDICAL DOCTORS.
[2018-05-03] MEDS ORDERED: LACT-246 PO (10:47)
[2018-05-03] MEDS ORDERED: MEGE400O4 PO (10:47)
--- NOTE | 2018-05-03 12:34 | NUR ---
GPS OVERFLOW SEWAGE DISPOSAL ENGINEER NOTES: PT WAS DISCHARGED FROM FACILITY TO [facility] IN STABLE CONDITION. PSYCHIATRIC MD ALONG WITH MEDICAL MD IN AGREEMENT OF DISCHARGE. REPORT CALLED AND GIVEN TO LALA THE DIGITAL CONTENT MANAGER ALL NEEDS WERE ANTICIPATED FOR AND MET. ALL DUE MEDS GIVEN. PT REFUSED D/C PHOTOS. SHE DENIED ANY SUICIDAL OR HOMICIDAL IDEATION PRIOR TO DISCHARGE. BELONGINGS WERE VERIFIED BY LINTER TENDER PRIOR TO D/C. ALL BELONGINGS ACCOUNTED FOR. PT INSTRUCTED ON D/C INSTRUCTIONS AND VERBALIZED FULL UNDERSTANDING. PT SIGNED ALL D/C PAPERWORK. SHE WAS ALSO GIVEN A WRITTEN PRESCRIPTION BY PSYCH MD. PT WAS TRANSFERRED FROM HOSPITAL BED TO [facility]. SHE LEFT VIA AMBULANCE TRANSPORT WITH ALL BELONGS AND COPIES OF D/C PAPERWORK.
--- NOTE | 2018-05-03 13:28 | NUR ---
DISCHARGE NOTE: Pt was discharging at 1:00pm via [facility] to [facility] Address: [address] [facility], [place] [address] / . Pts friend Juan has been notified [phone] and agrees with discharge plan. Pts mood was pleasant with congruent affect and denied visual/auditory hallucinations and denied suicidal/homicidal ideations. Pt will be under the medical care of [facility]: Dr. Miryam Winters [address] [place] [address] , [place] [address] [phone] and was referred to [facility] [address] [place] [address], [phone] for psychiatric care. The multidisciplinary exitcare form was done, printed, signed, and given to the patient.
== END 2018-05-03 12:40 | disposition home or self-care (01) | DRG 881 ==
LOC: EDSEX 05:52 → GPS 05:52 → GPSOV2 05-01 16:35
PROVIDERS: ADMIT Psychiatry & Neurology Psychiatry
DX: F32.9 Major depressive disorder, single episode, unspecified (principal); E43 Unspecified severe protein-calorie malnutrition; N39.0 Urinary tract infection, site not specified; Z68.1 Body mass index [BMI] 19.9 or less, adult; F29 Unspecified psychosis not due to a substance or known physiological condition; M62.50 Muscle wasting and atrophy, not elsewhere classified, unspecified site; B96.89 Other specified bacterial agents as the cause of diseases classified elsewhere; R63.0 Anorexia
CPT/HCPCS: 36415; 71045-TC; 80048-TC; 80061-TC; 82746; 82962-TC; 83540-TC; 83735-TC; 84100-TC; 84443-TC; 85025-TC; 87081-TC; 97110-TC; 97530-TC; J1630; J3490; Z7610